=== PATIENT | female | born 1965 | race African-American/Black ===

== ENCOUNTER 2017-10-20 01:20 | Emergency (ER) | payer OTHER, BC ==
[~2017-10-20] VITALS: Ht 165.1 cm; Wt 70.8 kg
[~2017-10-20 01:20] MED LIST: ADVAIR 100-501 EACH IH; ADVAIR 250/501 DISK IH; ALBUTEROL17 GM IH; AUGMENTIN875 MG PO; Advair HFA 230/21 IH; CARDIZEM CD120 M1 PO; DICYCLOMINE HCL20 MG PO; DILTIAZEM 24HR120 MG PO; DONNATAL1 TABLET PO; LEVOCETIRIZINE D5 MG PO; PROTONIX40 MG PO; PROVENTIL HFA IH; PROVENTIL,2.5 MG/3 M IH; SINGULAIR10 MG PO; Singulair PO; VENTOLIN HFA18 GM IH; ZOFRAN ODT8 MG PO; ZYRTEC10 M3 PO; Zithromax PO; predniSONE PO
[2017-10-20 01:42] LABS: HEMOGLOBIN 13.2 G/DL (11.9-15.5); MCH 28.3 PG (29.0-34.0); MCHC 32.2 G/DL (30.0-36.0); PLATELET COUNT 334 K/uL (156-360); RBC DIS.WIDTH-CV 15.4 % (11.8-14.6); RBC DIS.WIDTH-SD 49.6 % (39-53); RED BLOOD COUNT 4.66 M/uL (3.80-5.20); WHITE BLOOD COUNT 9.4 K/uL (4.1-10.2)
[2017-10-20 01:51] LABS: CHLORIDE 108 mEq/L (99-109); POTASSIUM 3.7 mEq/L (3.7-5.4); SODIUM 143 mEq/L (136-147)
[2017-10-20 01:53] LABS: GLUCOSE 107 mg/dL (70-99)
[2017-10-20 01:57] LABS: CREATININE 1.1 mg/dL (0.6-1.3); GFR ESTIMATE (CALCULATED) > 59 mL/min/; UREA NITROGEN (BUN) 11 mg/dL (9-23)
[2017-10-20 02:06] LABS: TROP-I INTERPRETATION NEGATIVE; TROPONIN-I 0.03 ng/mL (0.0-0.30)
[2017-10-20] MEDS ORDERED: PREDNISONE50 MG PO (02:33)
[2017-10-20 03:34] VITALS: BP 133/78
== END 2017-10-20 03:35 | disposition home or self-care (01) ==
LOC: EME 01:20
DX: J45.901 Unspecified asthma with (acute) exacerbation (principal); Z88.6 Allergy status to analgesic agent
CPT/HCPCS: 71046; 80048; 84484; 85027; 93005; 94640; 99281; 99284; J7512